=== PATIENT | male | born 1980 | race Caucasian/White ===

== ENCOUNTER → 2020-08-08 | Outpatient (CLI) | payer OTHER | LOC: KOH-I 11:01 | DX: G40.209 Localization-related (focal) (partial) symptomatic epilepsy and epileptic syndromes with complex partial seizures, not intractable, without status epilepticus (principal); J32.8 Other chronic sinusitis; J34.89 Other specified disorders of nose and nasal sinuses | CPT/HCPCS: 70551 ==

== ENCOUNTER 2021-06-05 14:52 | Emergency (ER) | payer OTHER ==
[2021-06-05 15:47] LABS: HEMOGLOBIN 11.7 gm/dl (14.0-17.5); RED BLOOD COUNT 4.68 M/UL (4.20-5.50); WHITE BLOOD COUNT 13.8 K/UL (4.5-11.0)
[2021-06-05 16:05] LABS: BUN/CREATININE RATIO 10 (0-10)
[2021-06-05] MEDS ORDERED: FLONASE 0.05% N16 GM (19:31)
[2021-06-05] MEDS ORDERED: ANTIVERT50 MG PO (19:31)
== END 2021-06-05 20:00 | disposition home or self-care (01) ==
LOC: ER1 14:52
PROVIDERS: Physician Assistant
DX: R42 Dizziness and giddiness (principal); J06.9 Acute upper respiratory infection, unspecified; F17.200 Nicotine dependence, unspecified, uncomplicated; Z20.822 Contact with and (suspected) exposure to COVID-19; K21.9 Gastro-esophageal reflux disease without esophagitis; W19.XXXA Unspecified fall, initial encounter
CPT/HCPCS: 36415; 70450; 80053; 85025; 99284; U0002